=== PATIENT | female | born 1965 | race Caucasian/White ===

== ENCOUNTER 2017-04-27 14:59 | Inpatient (IN) ==
[2017-04-27] MEDS ORDERED: Vancomycin 1,250 MG in D5% in Water 250 ML IVPB ONE ×2 (15:55→17:00)
[2017-04-27 16:23] LABS: Bilirubin,Urine Negative (Negative); Blood,Urine Negative (Negative); Color,Urine Yellow (Yellow); Glucose,Urine (UA) Normal (Normal); Ketones,Urine 15 mg/dL (Negative); Leukocyte Esterase,Urine Moderate (Negative); Nitrite,Urine Negative (Negative); Protein,Urine Negative (Neg-Trace); Specific Gravity,Urine 1.017 (1.010-1.025); Urobilinogen,Urine Normal (Normal)
[2017-04-27] MEDS ORDERED: Ketorolac 15 MG/ML VIAL IVP ONE (16:23)
[2017-04-27 16:25] LABS: Bacteria,Urine Moderate per hpf (None-Few); Hyaline Casts,Urine None Seen per lpf (None-Few); Squamous Epithelial Cell,Urine Many per lpf (None-Few); WBC,Urine 50-100 per hpf (0-3)
[2017-04-27 16:32] LABS: Clarity,Urine Slightly Hazy (Clear)
[2017-04-27 16:38] LABS: Basophils % 0.4 %; Eosinophils % 0.2 %; Hematocrit 43.3 % (35.3-44.9); Hemoglobin 14.4 g/dL (11.5-15.4); Immature Granulocytes % 0.4 % (0-4); Lymphocytes # 0.6 K/mcL (0.6-4.6); Lymphocytes % 12.8 %; Mean Corpuscular HGB Conc 33.3 g/dL (31.6-35.5); Mean Corpuscular Hemoglobin 28.4 pg (28.0-33.3); Mean Corpuscular Volume 85.4 fL (83.0-100.0); Mean Platelet Volume 10.8 fL (9.4-12.4); Monocytes # 0.3 K/mcL (0.0-1.3); Monocytes % 6.8 %; Neutrophils # 3.8 K/mcL (1.6-8.9); Platelet Count 110 K/mcL (140-400); Red Blood Count 5.07 M/mcL (3.82-4.97); Red Cell Distribution Width 13.9 % (11.5-14.5); Segmented Neutrophils % 79.4 %
[2017-04-27 16:54] LABS: Alanine Aminotransferase 16 Units/L (0-55); Albumin 3.8 g/dL (3.5-5.0); Albumin/Globulin Ratio 1.2 (1.1-2.2); Alkaline Phosphatase 70 Units/L (38-126); Aspartate Amino Transferase 16 Units/L (5-34); BUN/Creatinine Ratio 12 (6-26); Bilirubin,Direct 0.3 mg/dL (0.0-0.5); Blood Urea Nitrogen 9 mg/dL (7-20); Carbon Dioxide 23 mEq/L (19-29); Chloride 103 mEq/L (98-109); Globulin 3.2 g/dL (2.4-3.5); Glucose 92 mg/dL (70-99); Magnesium 1.6 mg/dL (1.6-2.6); Osmolality,Calculated 278 (280-300); Phosphorous 1.5 mg/dL (2.3-4.7); Potassium 3.6 mEq/L (3.5-4.5); Sodium 135 mEq/L (136-145); eGFR For African Americans > 60 (> 60); eGFR For Non-African Americans > 60 (> 60)
--- NOTE | 2017-04-27 16:54 | Emergency Department Note ---
Disposition Clinical Impression: Neck pain, Fever and chills, Myalgia Headache Qualifiers: Headache type: other complicated headache syndrome Qualified Code(s): G44.59 - Other complicated headache syndrome UTI (urinary tract infection) Qualifiers: Urinary tract infection type: site unspecified Hematuria presence: with hematuria Qualified Code(s): N39.0 - Urinary tract infection, site not specified ; R31.9 - Hematuria, unspecified Disposition: Admitted As Inpatient Condition: Serious Referrals: Keaton Gonzalez MD [Primary Care Provider] - Time of Disposition: 20:30 General Adult HPI - General Chief complaint: ED General Medical Stated complaint: Cold Chills x3 days Time Seen by Provider: 04/27/17 15:20 Source: patient Mode of arrival: ambulatory Limitations: no limitations Nursing Notes Reviewed: Yes Vital Signs Reviewed: Yes - History of Present Illness HPI Narrative: Patient is a 51-year-old female who is brought in by POC secondary to chills, bodyaches, 2 days. She states that 2 days ago she experienced sudden onset of severe chills and felt cold all day and was unable to get warm. Patient complains of headache and neck pain and fever 104 degrees Fahrenheit times one day ago. He states that she has had migraines in the past but her headache is completely different and feels worse. Patient states her neck feels painful with range of motion. Patient has history of back trauma and scoliosis times one year ago but her pain symptoms are worse today. Patient states headache 10/ 10 constant pressure on both sides of her head and has blurry vision. Patient also complains of bilateral abdominal flank pain but denies diarrhea, and vomiting. Pain Scale: 8 - Related Data Home Medications Medication Instructions Recorded Confirmed No Known Home Drugs 04/27/17 04/27/17 Allergies Allergy/AdvReac Type Severity Reaction Status Date / Time No Known Allergies Allergy Verified 07/25/15 19:27 All systems ED: reviewed and negative except as stated. Review of Systems: As Per HPI Constitutional: Reports: fever, chills Eyes: Reports: vision change ENT ED: Reports: ear pain Gastrointestinal: Reports: abdominal pain, nausea Musculoskeletal: Reports: back pain Neurological: Reports: headache, paresthesias (Bilateral upper extremities) Psychiatric: Reports: anxiety Past Medical History - Past Medical History Attestation: Yes The following information was validated with the patient. Source: patient Medical history: Reports: no medical history Psychiatric history: Reports: no psych history ACIDIZER history: Reports: no ACIDIZER history - Social History Smoking Status: Current some day smoker Smokeless Tobacco Status: No Alcohol use: Reports: none Drug use: Reports: none Physical Exam Vital Signs Temperature 103.3 F H 04/27/17 15:11 Pulse Rate 113 04/27/17 15:11 Respiratory Rate 18 04/27/17 15:11 Blood Pressure 115/76 04/27/17 15:11 O2 Sat by Pulse Oximetry 96 04/27/17 15:11 Temperature 98.4 F 04/27/17 22:10 Pulse Rate 76 04/27/17 22:10 Respiratory Rate 16 04/27/17 22:10 Blood Pressure 98/66 04/27/17 22:10 O2 Sat by Pulse Oximetry 91 04/27/17 22:10 Oxygen Delivery Oxygen Delivery Room Air -General Appearance: Patient is a 51-year-old female alert and oriented 3 abbi in bed very emotional and complaining of excruciating head and neck pain. Patient appears very uncomfortable -Neurological exam: Cranial nerves II-12 intact, no focal deficits observed, strength equal 5/5 bilaterally in upper and lower extremities, patient to perform rapid all stable movements of both hands, he will to littlejohn equal bilateral Negative loss of sensation, patient complains of tingling sensation in the upper extremities not reproducible with palpation - Head Head exam: atraumatic, normocephalic, normal inspection - Eye Eye exam: Present: normal appearance, PERRL, EOMI, negative for scleral icterus negative for conjunctival pallor - ENT ENT exam: normal exam, normal oropharynx, mucous membranes very dry, neck tender to palpation paraspinal cervical area, patient has severe discomfort with range of motion of neck. - Neck Neck exam: Present: normal inspection, full ROM, trachea midline, negative JVD - Chest Chest inspection: Present: Patient has bilateral equal rise and fall of chest wall. Non-tender to palpation. - Respiratory Respiratory exam: Clear to auscultation bilaterally without wheezes rales or rhonchi Cardiovascular Cardiovascular exam: Present: Fast rate regular rhythm without murmurs rubs or gallops. - Abdominal Exam Abdominal exam: Present: soft, nondistended, tender to palpation along patient' s flanks bilaterally. Bowel sounds normoactive throughout all 4 quadrants. Negative for hyper or hyperresonance. - Extremities Exam Extremities exam: Present: normal inspection, full ROM, pulses equal regular bilaterally at the radials and dorsal pedal and posterior tibial - Back Exam Back exam: Present: normal inspection, full ROM. Present tenderness, CVA tenderness (R), CVA tenderness (L) - Skin Skin exam: Present: warm, dry, intact, normal color no rash - General Limitations: no limitations General appearance: alert Course - Reevaluation(s) Reevaluation #1: Patient very uncomfortable secondary to pain. All labs and CT head been ordered. Time: 16:00 Reevaluation #2: Still continued to peripheral IV line. Patient had an ultrasound IV placed in right upper arm but access failed. We will reattempt after lumbar puncture Time: 17:00 Reevaluation #3: Patient received lumbar puncture and tolerated procedure well. No complications patient currently pain free after medications: Ativan IM for anxiety because pt is very anxious, and Dilaudid IM for severe pain all over. Patient O2 sats drop secondary to medications and has been placed on oxygen but is doing well. Patient still alert and oriented maintaining her own airway Time: 19:19 - Consultations Consultation #1: Patient is accepted for admission by Dr. Bansal the hospitalist at 2019 Time: 20:20 Vital Signs Temperature 103.3 F H 04/27/17 15:11 Pulse Rate 113 04/27/17 15:11 Respiratory Rate 18 04/27/17 15:11 Blood Pressure 115/76 04/27/17 15:11 O2 Sat by Pulse Oximetry 96 04/27/17 15:11 Temperature 98.4 F 04/27/17 22:10 Pulse Rate 76 04/27/17 22:10 Respiratory Rate 16 04/27/17 22:10 Blood Pressure 98/66 04/27/17 22:10 O2 Sat by Pulse Oximetry 91 04/27/17 22:10 Oxygen Delivery Oxygen Delivery Room Air Procedures - Lumbar Puncture Consent Obtained: verbal consent, written consent Time Out Performed: Yes Patient Position: upright Skin Prep: Povidone-Iodine 1% Local Anesthetic: lidocaine 1% Spinal Needle Gauge: 22G Interspace Used: L3-L4 Fluid Initially Obtained: cloudy Complications: none Medical Decision Making - MDM Narrative Medical decision making narrative: Patient concerning for meningitis bacterial versus viral, sepsis, UTI. Secondary to high fever 103 with very neck pain, severe headache not equal to previous migraine-type headaches, flank pain bilaterally with urinary urgency, myalgias, light sensitivity and blurred vision blurriness, nausea. Patient has a fever of 103 degrees Fahrenheit and is tachycardic at 113 bpm. Patient's urine looks suspicious for UTI has a lot of squama cells. In conjunction with patient's presentation possible sepsis. Patient's CSF studies were negative. Patient was started on antibiotics ceftriaxone and vancomycin, patient was given Ativan and Dilaudid for pain and and anxiety. Patient received her 30 mg/ kg bolus of IV fluids. Patient received Tylenol which broke her fever. Patient is currently comfortable. Patient's nausea has been controlled with Zofran. Recommend admission to the hospital to patient and patient and family understands and accepts treatment and plan Patient will continue her treatment inpatient medicine. Patient is accepted for admission by Dr. gil to the hospitalist, for continued antibiotic therapy for suspected sepsis and pain control. - Medical Records Medical records reviewed: Yes I reviewed the patient's medical records. - Lab Data Lab results reviewed: Yes I reviewed the patient's lab results. Lab results narrative: Short CBC 04/27/17 Range/Units 16:19 WBC 4.8 (4.3-11.1) K/mcL Hgb 14.4 (11.5-15.4) g/dL Hct 43.3 (35.3-44.9) % Plt Count 110 L (140-400) K/mcL Neutrophils # 3.8 (1.6-8.9) K/mcL BMP 04/27/17 Range/Units 16:19 Sodium 135 L (136-145) mEq/L Potassium 3.6 (3.5-4.5) mEq/L Chloride 103 (98-109) mEq/L Carbon Dioxide 23 (19-29) mEq/L BUN 9 (7-20) mg/dL Creatinine 0.77 (0.57-1.11) mg/dL Glucose 92 (70-99) mg/dL Calcium 10.0 (8.6-10.8) mg/dL Liver Function 04/27/17 Range/Units 16:19 Total Bilirubin 0.3 (0.2-1.2) mg/dL Direct Bilirubin 0.3 (0.0-0.5) mg/dL AST 16 (5-34) Units/L ALT 16 (0-55) Units/L Alkaline Phosphatase 70 (38-126) Units/L Albumin 3.8 (3.5-5.0) g/dL Urine 04/27/17 Range/Units 15:25 Urine Color Yellow (Yellow) Urine Clarity Slightly Hazy (Clear) Urine pH 8.0 (5.0-8.0) pH Units Ur Specific [place] 1.017 (1.010-1.025) Urine Protein Negative (Neg-Trace) mg/dL Urine Glucose (UA) Normal (Normal) mg/dL Result diagrams: 04/27/17 16:19 04/27/17 16:19 Lab Results 04/27/17 04/27/17 04/27/17 Range/Units 15:25 16:19 16:19 WBC 4.8 (4.3-11.1) K/mcL RBC 5.07 H (3.82-4.97) M/mcL Hgb 14.4 (11.5-15.4) g/dL Hct 43.3 (35.3-44.9) % MCV 85.4 (83.0-100.0) fL MCH 28.4 (28.0-33.3) pg MCHC 33.3 (31.6-35.5) g/dL RDW 13.9 (11.5-14.5) % Plt Count 110 L (140-400) K/mcL MPV 10.8 (9.4-12.4) fL Immature Gran % 0.4 (0-4) % Seg Neutrophils % 79.4 % Lymphocytes % 12.8 % Monocytes % 6.8 % Eosinophils % 0.2 % Basophils % 0.4 % Neutrophils # 3.8 (1.6-8.9) K/mcL Lymphocytes # 0.6 (0.6-4.6) K/mcL Monocytes # 0.3 (0.0-1.3) K/mcL Eosinophils # 0.0 (0.0-0.6) K/mcL Basophils # 0.0 (0.0-0.2) K/mcL APTT 29.8 (26.0-36.0) Seconds VBG pH (7.32-7.42) pH Units VBG pCO2 (41-51) mmHg VBG pO2 (25-40) mmHg VBG HCO3 (21-27) mEq/L Sodium (136-145) mEq/L Potassium (3.5-4.5) mEq/L Chloride (98-109) mEq/L Carbon Dioxide (19-29) mEq/L BUN (7-20) mg/dL Creatinine (0.57-1.11) mg/dL Est GFR ( Amer) (> 60) Est GFR (Non-Af Amer) (> 60) BUN/Creatinine Ratio (6-26) Glucose (70-99) mg/dL Calculated Osmolality (280-300) Lactic Acid (0.5-2.2) mmol/L Calcium (8.6-10.8) mg/dL Phosphorus (2.3-4.7) mg/dL Magnesium (1.6-2.6) mg/dL Total Bilirubin (0.2-1.2) mg/dL Direct Bilirubin (0.0-0.5) mg/dL Indirect Bilirubin (0.0-1.2) mg/dL AST (5-34) Units/L ALT (0-55) Units/L Alkaline Phosphatase (38-126) Units/L Serum Total Protein (6.0-8.3) g/dL Albumin (3.5-5.0) g/dL Globulin (2.4-3.5) g/dL Albumin/Globulin Ratio (1.1-2.2) Lipase (8-78) Units/L Serum , Qual (Negative) Urine Color Yellow (Yellow) Urine Clarity Slightly Hazy (Clear) Urine pH 8.0 (5.0-8.0) pH Units Ur Specific [place] 1.017 (1.010-1.025) Urine Protein Negative (Neg-Trace) mg/dL Urine Glucose (UA) Normal (Normal) mg/dL Urine Ketones 15 H (Negative) mg/dL Urine Blood Negative (Negative) Urine Nitrite Negative (Negative) Urine Bilirubin Negative (Negative) Urine Urobilinogen Normal (Normal) mg/dL Ur Leukocyte Esterase Moderate H (Negative) Urine Microscopic RBC 3-5 H (0-3) per hpf Urine Microscopic WBC 50-100 H (0-3) per hpf Ur Squamous Epith Cells Many H (None-Few) per lpf Urine Bacteria Moderate H (None-Few) per hpf Hyaline Casts None Seen (None-Few) per lpf Ur Culture Indicated? YES A (NO) CSF Volume mL CSF Appearance (Clear) CSF Color (Colorless) CSF RBC (0.000 - 0.002) M/mcL CSF Tot Nucleated Cells (0-5) TNC/mcL CSF Seg Neutrophils CSF Band Neutrophils % CSF Lymphocytes % CSF Monocytes % CSF Eosinophils % CSF Basophils % CSF Other Cells % CSF Glucose (40-70) mg/dL CSF Xanth Comm (Not Observe) CSF Total Protein (15-45) mg/dL 04/27/17 04/27/17 04/27/17 Range/Units 16:19 16:19 16:59 WBC (4.3-11.1) K/mcL RBC (3.82-4.97) M/mcL Hgb (11.5-15.4) g/dL Hct (35.3-44.9) % MCV (83.0-100.0) fL MCH (28.0-33.3) pg MCHC (31.6-35.5) g/dL RDW (11.5-14.5) % Plt Count (140-400) K/mcL MPV (9.4-12.4) fL Immature Gran % (0-4) % Seg Neutrophils % % Lymphocytes % % Monocytes % % Eosinophils % % Basophils % % Neutrophils # (1.6-8.9) K/mcL Lymphocytes # (0.6-4.6) K/mcL Monocytes # (0.0-1.3) K/mcL Eosinophils # (0.0-0.6) K/mcL Basophils # (0.0-0.2) K/mcL APTT (26.0-36.0) Seconds VBG pH (7.32-7.42) pH Units VBG pCO2 (41-51) mmHg VBG pO2 (25-40) mmHg VBG HCO3 (21-27) mEq/L Sodium 135 L (136-145) mEq/L Potassium 3.6 (3.5-4.5) mEq/L Chloride 103 (98-109) mEq/L Carbon Dioxide 23 (19-29) mEq/L BUN 9 (7-20) mg/dL Creatinine 0.77 (0.57-1.11) mg/dL Est GFR ( Amer) > 60 (> 60) Est GFR (Non-Af Amer) > 60 (> 60) BUN/Creatinine Ratio 12 (6-26) Glucose 92 (70-99) mg/dL Calculated Osmolality 278 L (280-300) Lactic Acid 1.1 (0.5-2.2) mmol/L Calcium 10.0 (8.6-10.8) mg/dL Phosphorus 1.5 L (2.3-4.7) mg/dL Magnesium 1.6 (1.6-2.6) mg/dL Total Bilirubin 0.3 (0.2-1.2) mg/dL Direct Bilirubin 0.3 (0.0-0.5) mg/dL Indirect Bilirubin 0.0 (0.0-1.2) mg/dL AST 16 (5-34) Units/L ALT 16 (0-55) Units/L Alkaline Phosphatase 70 (38-126) Units/L Serum Total Protein 7.0 (6.0-8.3) g/dL Albumin 3.8 (3.5-5.0) g/dL Globulin 3.2 (2.4-3.5) g/dL Albumin/Globulin Ratio 1.2 (1.1-2.2) Lipase < 10 (8-78) Units/L Serum , Qual Negative (Negative) Urine Color (Yellow) Urine Clarity (Clear) Urine pH (5.0-8.0) pH Units Ur Specific [place] (1.010-1.025) Urine Protein (Neg-Trace) mg/dL Urine Glucose (UA) (Normal) mg/dL Urine Ketones (Negative) mg/dL Urine Blood (Negative) Urine Nitrite (Negative) Urine Bilirubin (Negative) Urine Urobilinogen (Normal) mg/dL Ur Leukocyte Esterase (Negative) Urine Microscopic RBC (0-3) per hpf Urine Microscopic WBC (0-3) per hpf Ur Squamous Epith Cells (None-Few) per lpf Urine Bacteria (None-Few) per hpf Hyaline Casts (None-Few) per lpf Ur Culture Indicated? (NO) CSF Volume mL CSF Appearance (Clear) CSF Color (Colorless) CSF RBC (0.000 - 0.002) M/mcL CSF Tot Nucleated Cells (0-5) TNC/mcL CSF Seg Neutrophils CSF Band Neutrophils % CSF Lymphocytes % CSF Monocytes % CSF Eosinophils % CSF Basophils % CSF Other Cells % CSF Glucose (40-70) mg/dL CSF Xanth Comm (Not Observe) CSF Total Protein (15-45) mg/dL 04/27/17 04/27/17 Range/Units 16:59 18:56 WBC (4.3-11.1) K/mcL RBC (3.82-4.97) M/mcL Hgb (11.5-15.4) g/dL Hct (35.3-44.9) % MCV (83.0-100.0) fL MCH (28.0-33.3) pg MCHC (31.6-35.5) g/dL RDW (11.5-14.5) % Plt Count (140-400) K/mcL MPV (9.4-12.4) fL Immature Gran % (0-4) % Seg Neutrophils % % Lymphocytes % % Monocytes % % Eosinophils % % Basophils % % Neutrophils # (1.6-8.9) K/mcL Lymphocytes # (0.6-4.6) K/mcL Monocytes # (0.0-1.3) K/mcL Eosinophils # (0.0-0.6) K/mcL Basophils # (0.0-0.2) K/mcL APTT (26.0-36.0) Seconds VBG pH 7.49 H (7.32-7.42) pH Units VBG pCO2 34 L (41-51) mmHg VBG pO2 31 (25-40) mmHg VBG HCO3 25.9 (21-27) mEq/L Sodium (136-145) mEq/L Potassium (3.5-4.5) mEq/L Chloride (98-109) mEq/L Carbon Dioxide (19-29) mEq/L BUN (7-20) mg/dL Creatinine (0.57-1.11) mg/dL Est GFR ( Amer) (> 60) Est GFR (Non-Af Amer) (> 60) BUN/Creatinine Ratio (6-26) Glucose (70-99) mg/dL Calculated Osmolality (280-300) Lactic Acid (0.5-2.2) mmol/L Calcium (8.6-10.8) mg/dL Phosphorus (2.3-4.7) mg/dL Magnesium (1.6-2.6) mg/dL Total Bilirubin (0.2-1.2) mg/dL Direct Bilirubin (0.0-0.5) mg/dL Indirect Bilirubin (0.0-1.2) mg/dL AST (5-34) Units/L ALT (0-55) Units/L Alkaline Phosphatase (38-126) Units/L Serum Total Protein (6.0-8.3) g/dL Albumin (3.5-5.0) g/dL Globulin (2.4-3.5) g/dL Albumin/Globulin Ratio (1.1-2.2) Lipase (8-78) Units/L Serum , Qual (Negative) Urine Color (Yellow) Urine Clarity (Clear) Urine pH (5.0-8.0) pH Units Ur Specific [place] (1.010-1.025) Urine Protein (Neg-Trace) mg/dL Urine Glucose (UA) (Normal) mg/dL Urine Ketones (Negative) mg/dL Urine Blood (Negative) Urine Nitrite (Negative) Urine Bilirubin (Negative) Urine Urobilinogen (Normal) mg/dL Ur Leukocyte Esterase (Negative) Urine Microscopic RBC (0-3) per hpf Urine Microscopic WBC (0-3) per hpf Ur Squamous Epith Cells (None-Few) per lpf Urine Bacteria (None-Few) per hpf Hyaline Casts (None-Few) per lpf Ur Culture Indicated? (NO) CSF Volume 5.0 mL CSF Appearance Clear (Clear) CSF Color Colorless (Colorless) CSF RBC < 0.002 (0.000 - 0.002) M/mcL CSF Tot Nucleated Cells < 3 (0-5) TNC/mcL CSF Seg Neutrophils Test Not Performed CSF Band Neutrophils % Test Not Performed CSF Lymphocytes % Test Not Performed CSF Monocytes % Test Not Performed CSF Eosinophils % Test Not Performed CSF Basophils % Test Not Performed CSF Other Cells % Test Not Performed CSF Glucose 52 (40-70) mg/dL CSF Xanth Comm Not Observed (Not Observe) CSF Total Protein 35 (15-45) mg/dL - Radiology Data Radiology results reviewed: Yes I reviewed the patient's radiology results. Chest X-Ray 04/27/17 15:56 IMPRESSION: No acute cardiac or pulmonary disease. D/ / Vick Hassan MD / Vick Hassan MD Interpreting Provider: Vick Hassan MD Head CT 04/27/17 16:22 IMPRESSION: No acute intracranial abnormality. D/ / Estephania Greene Cha, MD / Estephania Greene Cha, MD Interpreting Provider: Estephania Greene Cha, MD Critical Care Time Critical Care Time: Yes Total Critical Care Time: 30 Attestation: The high probability of a clinically significant, sudden or life threatening deterioration of the [neuro] system(s) required my full and direct attention, intervention and personal management. The aggregate critical care time was [30] minutes. This time is in addition to time spent performing reported procedures but includes the following: [x] Data Review and interpretation [x] Patient assessment and monitoring of vital signs [x] Documentation [x] Medication orders and management Attestation Statement - Attestation Attestation: I personally interviewed and examined this patient and my medical decision- making was reviewed with the Resident Physician, Dr. Palacios and Dr. Silva. I agree with the documented findings, disposition and treatment plan as described except to the extent set forth below. Patient is a 51-year-old white female who presents to the emergency department today with complaints of a 2 day history of fevers mild upper respiratory symptoms, gradually worsening diffuse headache, with neck pain and stiffness. Patient states that these symptoms have gradually worsened over the last 48 hours to the point that she is having significant nausea secondary to increased pain in her head and neck with decreased appetite. Patient states her MAXIMUM TEMPERATURE at home has been 104 for which she has been taking Tylenol. Patient has a history of chronic low back pain secondary to scoliosis and states that this is at its baseline and not any worse in comparison with the neck and headache pain she is experiencing. Patient states she has had occasional migraine headaches in the past but this feels very different was gradual in onset, generalized and throbbing in nature not associated with photophobia/phonophobia. Patient denies any ill contacts that she is aware of. Patient presents with fever and tachycardia but stable blood pressure on arrival. Due to patient being Sirs criteria this was ordered on arrival as well as fluid boluses. Blood cultures were obtained. I agree with patient's physical exam findings as documented. Patient had labs obtained as well as blood cultures, was given medication for pain and anxiety, IV fluid boluses were initiated and following cultures patient was treated with empiric antibiotic therapy for possible meningitis. I personally supervised Dr. Palacios during lumbar puncture procedure. 10/24 remained, initial attempt was with the patient in left lateral recumbent position, second attempt which was successful was in a seated position. Cerebrospinal fluid was sent for analysis and Gram stain and culture. Patient with a normal white count on laboratory, normal lactate, all labs within normal limits and CSF was unremarkable for any infection or bacteria present on the Gram stain. Urinalysis showed large leuks but possibly contaminated as a clean- catch specimen was obtained and there were no nitrates. Patient did get some relief from her headache pain after pain medication which caused a transient hypotension. Fluids were continued and she was placed on supplemental O2 but was maintaining an airway and good mental status. At this point time is unclear what has contributed to the fever but workup for meningitis was negative. Patient primarily complaining of headache and neck discomfort related to this fever. Fever did respond medications on arrival temp is down at this time. We will admit the patient for ongoing antibiotic therapy and continued medical management. Patient was admitted to the hospitalist service for further evaluation and management. Heart Score - Score History: Moderately Suspicious EKG: Non Specific repolarisation Disturbance Age: 45-65 Risk Factors: Equal/Greater than 3 risk factor or history of atherosclerotic disease Troponin: Less than normal limit HEART Score Total: 5
[2017-04-27 17:00] LABS: Lipase < 10 Units/L (8-78)
[2017-04-27] MEDS ORDERED: Ondansetron 4 MG/2 ML VIAL IVP ONE (17:11)
[2017-04-27 17:21] LABS: VBG HCO3 25.9 mEq/L (21-27); VBG PH 7.49 pH Units (7.32-7.42)
[2017-04-27] MEDS ORDERED: *HR* LORazepam 2 MG/ML VIAL IVP ONE (17:25)
[2017-04-27] MEDS ORDERED: *HR* HYDROmorphone (PF) 1 MG/ML SYRINGE IVP ONE (17:34)
[2017-04-27] MEDS ORDERED: *HR* HYDROmorphone (PF) 1 MG/ML SYRINGE IM ONE (17:39)
[2017-04-27] MEDS ORDERED: *HR* LORazepam 2 MG/ML VIAL IM STA (17:40)
[2017-04-27 19:13] LABS: Red Blood Cell,CSF < 0.002 M/mcL
[2017-04-27] MEDS: 0.9 % Sodium Chloride 1,000 ML IVC SCH ×2 (19:13→20:02)
[2017-04-27 19:14] LABS: Appearance,CSF Clear (Clear)
[2017-04-27 19:24] LABS: Glucose,CSF 52 mg/dL (40-70); Total Protein,CSF 35 mg/dL (15-45)
[2017-04-27] MEDS ORDERED: 0.9 % Sodium Chloride 1,000 ML ONE ×2 (20:01→22:27)
[2017-04-27] MEDS ORDERED: Naloxone 0.4 MG/ML INJ IVP PRN (23:24)
[2017-04-27] MEDS ORDERED: *HR* Morphine 2 MG/ML SYRINGE IVP PRN (23:29)
[2017-04-27] MEDS ORDERED: Ondansetron 4 MG/2 ML VIAL IVP PRN (23:29)
[2017-04-27] MEDS ORDERED: Acetaminophen 325 MG TABLET PO PRN (23:29)
--- NOTE | 2017-04-27 23:48 | Internal Med History&Physical ---
<Jerzy Witt J - Last Filed: 04/28/17 00:20> Date of Encounter: 04/28/17 Time of Encounter: 23:41 Assessment and Plan (1) Sepsis secondary to UTI Current visit: Yes Status: Acute Presented to the ED with chills, body aches, fever Tmax 103, dysuria, urgency, nausea, Hypotension, tachycardia, UA confirmed diagnosis of UTI. Due to positive SIRS criteria diagnosis is sepsis secondary to UTI. Admit to inpatient Continuous tele Continuous pulse ox Oxygen PRN >92% Q2hour vitals until hemodynamically stable IVF 0.9%NS at 150ml/hr Tylenol 650mg for fever and pain. Continue Rocephin 1gm daily. Morphine 2mg Q6hr for pain (2) DVT prophylaxis Current visit: Yes Status: Acute Prolonged bed rest secondary to hospital stay and sepsis diagnosis. Patient at risk for DVT. Initiate Lovenox subcutaneous 40 mg daily Internal Medicine - H&P: HPI Chief complaint: Chills, bodyaches, Dysuria, weakness and fatigue Admitted From: Home Plans for Post Hospital Care: Home History of present illness: Ms. Yang is a 51 year old female with no past medical history who presents to [facility] with ongoing neck pain, chills, dysuria, urgency, fever Tmax 103, abdominal pain, body aches, neck pain for 2 days. Patient reports to feeling ill for a few weeks overall with night sweats, sore throat, ear pain, and generalized aches. However 2 days ago she began experiencing chills, dysuria, urgency and fevers which are continuing. She denies taking any mediation for remediation of symptoms. SIRS criteria implemented in the ED as the patient was hypotensive, tachycardic, and febrile. She received 3 L IV fluid bolus. Urinalysis noted moderate leukocytes. Culture sent, blood culture sent, lumbar puncture was completed due to neck pain with limited range of motion and positive SIRS criteria. CBC and BMP are unremarkable. Additionally, she was given vancomycin and Rocephin in the ED. She is being admitted for further workup and evaluation. Past Med Surg Social Fam HX - Past Medical History Medical history: no medical history Psychiatric history: no psych history - Social History Smoking Status: Current some day smoker Packs per day: 0.5 Smokeless Tobacco Status: No Alcohol use: none Drug use: none - Family History Mother Hx Family Endocrine Disorder: Yes (Diabetes) Father Hx Family Cancer: Yes (throat) Internal Medicine - H&P: Meds No Known Home Drugs 04/27/17 [History] Allergies No Known Allergies Allergy (Verified 07/25/15 19:27) All Systems PM: A 10-system review of systems was performed and is negative for pertinent findings except as documented above in the HPI. - Constitutional Constitutional: chills (x2 days), excessive sweating, fatigue, fever(s) (x2days) , lethargy, malaise, weakness, no night sweats - EENT Eyes: no change in vision, no discharge, no pain, no photophobia Ears: no ear discharge, no ear pain, no tinnitus Nose, mouth and throat: no dysphagia, no nasal discharge, no neck pain, no sore throat - Cardiovascular Cardiovascular ROS IM: no chest pain, no diaphoresis, no dyspnea, no lightheadedness, no palpitations, no syncope - Respiratory Respiratory: no cough, no dyspnea, no wheezing, no excessive phlegm production - Gastrointestinal Gastrointestinal: no abdominal pain, no diarrhea, no hematemesis, no hematochezia, no melena, no nausea, no vomiting - Genitourinary Genitourinary: dysuria, urinary frequency, urinary urgency, no change in urinary stream, no flank pain, no hematuria, no urinary hesitancy, no urinary incontinence - Musculoskeletal Musculoskeletal ROS IM: back pain (lower back only/ h/o sciatica reported), no numbness, no tingling - Integumentary Integumentary IM: no erythema, no new lesions, no rash, no skin ulcer, no sores , no unusual bruising - Neurological Neurological ROS: no confusion, no convulsions, no focal weakness, no numbness, no tingling, no tremor(s) - Hematologic/Lymphatic Hematologic/Lymphatic: no easy bruising - Constitutional Vitals: Temp Pulse Resp BP Pulse Ox 98.4 F 76 16 98/66 91 04/27/17 22:10 04/27/17 22:10 04/27/17 22:10 04/27/17 22:10 04/27/17 22:10 General appearance: Present: mild distress, A&O X 3, pleasant, answers questions appropriately - Head Head exam: Present: atraumatic, normocephalic - Eye Eye exam: Present: EOMI, PERRL, conjuntiva pink, sclera anicteric Pupils: Present: PERRL - Neck Neck exam general surgery: Present: supple, trachea midline. Absent: lymphadenopathy - Respiratory Respiratory exam: Present: CTAB. Absent: accessory muscle use, rales, rhonchi, wheezes - Cardiovascular Cardiovascular exam: Present: RRR, +S1, +S2. Absent: diastolic murmur, gallop, rubs, systolic murmur - GI/Abdominal GI/Abdominal exam: Present: normal bowel sounds, soft, no peritoneal signs. Absent: distended, tenderness - Extremities Exam Extremities exam: Present: normal capillary refill, warm, radial pulses palpable and symmetrical. Absent: calf tenderness, cyanotic, pedal edema - Neurological Exam Neurological exam: Present: CN II-XII intact, oriented X3, no focal deficits. Absent: pronater drift, facial droop, speech deficit - Skin Skin exam: Present: dry, intact, warm Internal Med - H&P Results - Labs CBC & Chem 7: 04/27/17 16:19 04/27/17 16:19 <George Peterson - Last Filed: 04/28/17 05:31> Date of Encounter: 04/28/17 Internal Medicine - H&P: HPI History of present illness: Ms. Yang is a 51 year old female All Systems PM: A 10-system review of systems was performed and is negative for pertinent findings except as documented above in the HPI. - Constitutional Vitals: Temp Pulse Resp BP Pulse Ox 102.7 F H 103 15 121/79 96 04/28/17 04:22 04/28/17 04:22 04/28/17 04:22 04/28/17 04:22 04/28/17 04:22 Internal Med - H&P Results - Labs CBC & Chem 7: 04/28/17 02:09 04/28/17 02:09 Labs: Short CBC 04/28/17 Range/Units 02:09 WBC 4.4 (4.3-11.1) K/mcL Hgb 13.4 (11.5-15.4) g/dL Hct 41.2 (35.3-44.9) % Plt Count 108 L (140-400) K/mcL Neutrophils # 3.1 (1.6-8.9) K/mcL BMP 04/28/17 02:09 Sodium 139 Potassium 3.4 L Chloride 108 Carbon Dioxide 24 BUN 12 Creatinine 0.72 Glucose 119 H Calcium 9.1 Liver Function 04/28/17 04/28/17 Range/Units 02:09 02:09 Total Bilirubin 0.3 0.3 (0.2-1.2) mg/dL Direct Bilirubin 0.2 (0.0-0.5) mg/dL AST 13 13 (5-34) Units/L ALT 12 12 (0-55) Units/L Alkaline Phosphatase 60 57 (38-126) Units/L Albumin 2.9 L 2.9 L D (3.5-5.0) g/dL - Attending Attestation I independently obtained history and examined this patient and my medical decision-making was reviewed with the nurse practitioner, Jerzy Witt. I agree with the documented findings, disposition and treatment plan as described. My findings are summarized below: On exam the patient is in no acute distress awake alert and oriented. Heart exam is regular S1-S2, lungs are clear, abdomen is obese, soft and nontender Plan: We will treat her with IV antibiotics and IV fluids for sepsis. I will increase the dose of ceftriaxone to 2 g every 24 hours. Follow-up culture and sensitivity.
--- NOTE | 2017-04-27 23:57 | Event Note ---
Date of Encounter: 04/27/17 Time of Encounter: 23:54 I independently obtained history and examined this patient and my medical decision-making was reviewed with the nurse practitioner, Jerzy Witt. I agree with the documented findings, disposition and treatment plan as described. My findings are summarized below: As noted kidney minutes patient presented to the hospital with fevers and chills. On exam she is in no acute distress awake alert and oriented, heart is regular, lungs are clear abdomen is soft Workup reveals positive urinalysis. Plan: We will treat her with IV fluid fluids and broad-spectrum IV antibiotics. She is at high risk due to sepsis and IV antibiotics which require close blood level monitoring for toxicity and therapeutic effect
[2017-04-28] MEDS: 0.9 % Sodium Chloride 1,000 ML IVC SCH ×6 (00:30→22:40)
[2017-04-28 02:26] LABS: Basophils % 0.2 %; Eosinophils % 0.7 %; Hematocrit 41.2 % (35.3-44.9); Hemoglobin 13.4 g/dL (11.5-15.4); Immature Granulocytes % 0.2 % (0-4); Lymphocytes % 22.4 %; Mean Corpuscular HGB Conc 32.5 g/dL (31.6-35.5); Mean Corpuscular Hemoglobin 28.3 pg (28.0-33.3); Mean Corpuscular Volume 87.1 fL (83.0-100.0); Mean Platelet Volume 10.8 fL (9.4-12.4); Monocytes # 0.3 K/mcL (0.0-1.3); Monocytes % 6.2 %; Neutrophils # 3.1 K/mcL (1.6-8.9); Platelet Count 108 K/mcL (140-400); Red Blood Count 4.73 M/mcL (3.82-4.97); Red Cell Distribution Width 14.1 % (11.5-14.5); Segmented Neutrophils % 70.3 %
[2017-04-28 02:38] LABS: Bilirubin,Direct 0.2 mg/dL (0.0-0.5); Bilirubin,Indirect 0.1 mg/dL (0.0-1.2); Bilirubin,Total 0.3 mg/dL (0.2-1.2); Total Protein 5.9 g/dL (6.0-8.3)
[2017-04-28 02:41] LABS: Alanine Aminotransferase 12 Units/L (0-55); Albumin 2.9 g/dL (3.5-5.0); Alkaline Phosphatase 57 Units/L (38-126); Aspartate Amino Transferase 13 Units/L (5-34); BUN/Creatinine Ratio 17 (6-26); Bilirubin,Total 0.3 mg/dL (0.2-1.2); Blood Urea Nitrogen 12 mg/dL (7-20); Calcium 9.1 mg/dL (8.6-10.8); Carbon Dioxide 24 mEq/L (19-29); Chloride 108 mEq/L (98-109); Globulin 2.9 g/dL (2.4-3.5); Glucose 119 mg/dL (70-99); Magnesium 1.5 mg/dL (1.6-2.6); Osmolality,Calculated 289 (280-300); Potassium 3.4 mEq/L (3.5-4.5); Sodium 139 mEq/L (136-145); Total Protein 5.8 g/dL (6.0-8.3); eGFR For African Americans > 60 (> 60); eGFR For Non-African Americans > 60 (> 60)
[2017-04-28 02:43] LABS: Phosphorous 2.6 mg/dL (2.3-4.7)
[2017-04-28] MEDS ORDERED: Acetaminophen IV 1,000 MG/100 ML INFUS..BTL IVPB ONE (04:47)
[2017-04-28] MEDS ORDERED: 0.9 % Sodium Chloride 1,000 ML IVC ONE (04:49)
[2017-04-28] MEDS: *HR* Enoxaparin 40 MG/0.4 ML SYRINGE SQ SCH (06:44)
[2017-04-28] MEDS ORDERED: Magnesium Sulfate 1 GM in D5% in Water 100 ML IVPB ONE (09:07)
[2017-04-28 09:46] LABS: Bilirubin,Indirect 0.2 mg/dL (0.0-1.2); Bilirubin,Total 0.5 mg/dL (0.2-1.2)
--- NOTE | 2017-04-28 12:00 | Internal Med Progress Note ---
Date of Encounter: 04/28/17 Time of Encounter: 11:57 - Assessment and plan (1) Sepsis secondary to UTI Current Visit: Yes Status: Acute Assessment and plan: Clinically improving continue IV ceftriaxone 1gm qdaily f/u urine and blood cultures mental status back to baseline Tylenol prn fever continue IV fluids started regular diet noted to have one time reading of elevated BG, HbA1C: 5.2 (2) Electrolyte abnormality Current Visit: Yes Status: Acute Assessment and plan: Hypokalemia and hypomagnesemia K and Mg supplemented continue to monitor electrolytes and replace as needed (3) Headache Current Visit: Yes Status: Chronic Assessment and plan: Will start Fioricet prn headache CT head reported no acute intracranial abnormality Qualifiers: Headache type: unspecified Headache chronicity pattern: unspecified pattern Intractability: not intractable Qualified Code(s): R51 - Headache (4) DVT prophylaxis Current Visit: Yes Status: Acute Assessment and plan: Lovenox SQ (5) Obesity (BMI 30-39.9) Current Visit: Yes Status: Chronic (6) Tobacco abuse Current Visit: Yes Status: Acute Assessment and plan: smoking cessation counseling provided not ready to quit at this time refused nicotine supplementation - Subjective Interval history: Pt seen and examined at bedside. Pt reports of feeling better since her arrival to the hospital. States she had increased urinary frequency associated with fevers and chills prior to her hospitalization. Denies any fever or chills at this time. Denies any increased urinary frequency, dysuria at this time. States she feels weak but significantly better. Reports of having chronic history of headaches which are improved with excedrin. Denies any other discomfort at this time. Smokes 1/2pack a day - Constitutional Vitals: Temp Pulse Resp BP Pulse Ox 98.3 F 74 16 97/67 96 04/28/17 10:32 04/28/17 10:32 04/28/17 10:32 04/28/17 10:32 04/28/17 10:32 General appearance: Present: cooperative, A&O X 3, morbidly obese, pleasant, answers questions appropriately - Head Head exam: Present: atraumatic, normocephalic - Eye Eye exam: Present: conjuntiva pink, sclera anicteric - Respiratory Respiratory exam: Present: CTAB. Absent: accessory muscle use, rales, rhonchi, wheezes - Cardiovascular Cardiovascular exam: Present: RRR, +S1, +S2. Absent: diastolic murmur, gallop, rubs, systolic murmur - GI/Abdominal GI/Abdominal exam: Present: distended (obese), normal bowel sounds, soft, no peritoneal signs. Absent: tenderness - Extremities Exam Extremities exam: Present: warm, radial pulses palpable and symmetrical. Absent : calf tenderness, cyanotic, pedal edema - Neurological Exam Neurological exam: Present: alert, oriented X3 - Psychiatric Psychiatric exam: Present: normal affect, normal mood Internal Medicine: Result - Labs CBC & Chem 7: 04/28/17 02:09 04/28/17 02:09 Labs: Short CBC 04/28/17 Range/Units 02:09 WBC 4.4 (4.3-11.1) K/mcL Hgb 13.4 (11.5-15.4) g/dL Hct 41.2 (35.3-44.9) % Plt Count 108 L (140-400) K/mcL Neutrophils # 3.1 (1.6-8.9) K/mcL BMP 04/28/17 02:09 Sodium 139 Potassium 3.4 L Chloride 108 Carbon Dioxide 24 BUN 12 Creatinine 0.72 Glucose 119 H Calcium 9.1 Liver Function 04/28/17 04/28/17 Range/Units 02:09 02:09 Total Bilirubin 0.3 0.3 (0.2-1.2) mg/dL Direct Bilirubin 0.2 (0.0-0.5) mg/dL AST 13 13 (5-34) Units/L ALT 12 12 (0-55) Units/L Alkaline Phosphatase 60 57 (38-126) Units/L Albumin 2.9 L 2.9 L D (3.5-5.0) g/dL Consult Discharge Plan - Plan Referrals: Mukesh Lambert MD [Non-Partnered Physician] - 05/07/17 9:30 am
[2017-04-28 12:48] LABS: Hemoglobin A1C 5.2 %
[2017-04-28] MEDS: Acetaminophen/Butalbital/CaffeineTABLET PO PRN (13:13)
[2017-04-28] MEDS ORDERED: Acetaminophen 325 MG TABLET PO PRN (13:14)
[2017-04-28] MEDS ORDERED: *HR* HYDROcodone/Acet 5/325 mg TABLET PO PRN (13:16)
[2017-04-28] MEDS ORDERED: Dextrose Gel 15 GM PO PRN ×2 (13:18)
[2017-04-28] MEDS ORDERED: *HR* Dextrose 50 % in Water (Syg) 50 ML SYRINGE IVP PRN (13:18)
[2017-04-28] MEDS ORDERED: D5% in Water 1,000 ML IVC PRN (13:18)
[2017-04-28] MEDS ORDERED: Insulin LISPRO 300 UNITS/3 ML VIAL SQ SCH ×2 (16:30→21:00)
[2017-04-29] MEDS: Acetaminophen/Butalbital/CaffeineTABLET PO PRN (00:43)
[2017-04-29] MEDS: *HR* Enoxaparin 40 MG/0.4 ML SYRINGE SQ SCH (05:23)
[2017-04-29 05:24] LABS: Basophils % 0.5 %; Eosinophils # 0.1 K/mcL (0.0-0.6); Eosinophils % 1.6 %; Immature Granulocytes % 0.3 % (0-4); Lymphocytes # 0.9 K/mcL (0.6-4.6); Lymphocytes % 24.4 %; Mean Corpuscular HGB Conc 32.3 g/dL (31.6-35.5); Mean Corpuscular Hemoglobin 28.3 pg (28.0-33.3); Mean Corpuscular Volume 87.7 fL (83.0-100.0); Mean Platelet Volume 11.2 fL (9.4-12.4); Monocytes # 0.3 K/mcL (0.0-1.3); Neutrophils # 2.4 K/mcL (1.6-8.9); Platelet Count 109 K/mcL (140-400); Red Blood Count 3.99 M/mcL (3.82-4.97); Red Cell Distribution Width 14.3 % (11.5-14.5); Segmented Neutrophils % 65.2 %
[2017-04-29 05:30] LABS: Hemoglobin 11.3 g/dL (11.5-15.4)
[2017-04-29 05:38] LABS: BUN/Creatinine Ratio 13 (6-26); Blood Urea Nitrogen 7 mg/dL (7-20); Calcium 8.8 mg/dL (8.6-10.8); Carbon Dioxide 25 mEq/L (19-29); Chloride 112 mEq/L (98-109); Glucose 103 mg/dL (70-99); Magnesium 1.6 mg/dL (1.6-2.6); Osmolality,Calculated 290 (280-300); Phosphorous 2.5 mg/dL (2.3-4.7); Potassium 3.8 mEq/L (3.5-4.5); Sodium 141 mEq/L (136-145); eGFR For African Americans > 60 (> 60); eGFR For Non-African Americans > 60 (> 60)
--- NOTE | 2017-04-29 07:02 | Electrocardiograph Report ---
[place] [id number] Test Date: 2017-04-27 Pat Name: Cyndi Yang Department: 105 Room: 3A44 Gender: F Reimbursement Specialist: : [id number] Requested By: Indra Palacios Order Number: [id number] Reading MD: Raghav Owens MD Measurements Intervals [place] Rate: 96 P: 61 UT: 142 QRS: 53 QRSD: 84 T: 50 QT: 336 QTc: 389 Interpretive Statements SINUS RHYTHM Poor R wave progression Electronically Signed On 04-29-2017 6:59:57 EDT by Raghav Owens MD
[2017-04-29] MEDS ORDERED: 0.9 % Sodium Chloride 1,000 ML IVC SCH (07:51)
[2017-04-29 10:15] VITALS: BP 108/70
--- NOTE | 2017-04-29 11:33 | Discharge Summary ---
Date of Encounter: 04/29/17 Time of Encounter: 11:32 - Discharge Diagnosis (1) Sepsis secondary to UTI Priority: Primary Status: Resolved (2) Electrolyte abnormality Priority: Secondary Status: Resolved (3) Headache Priority: Secondary Status: Chronic Qualifiers: Headache type: unspecified Headache chronicity pattern: unspecified pattern Intractability: not intractable Qualified Code(s): R51 - Headache (4) DVT prophylaxis Priority: Secondary Status: Acute (5) Obesity (BMI 30-39.9) Priority: Secondary Status: Chronic (6) Tobacco abuse Priority: Secondary Status: Chronic - Discharge Medications Prescriptions: Acetaminophen/Butalbital/Caffe [Fioricet] 1 each PO Q6HR PRN #10 tablet PRN Reason: Headache Levofloxacin [Levaquin] 750 mg PO DAILY #7 tablet Home Medications: Acetaminophen/Butalbital/Caffe [Fioricet] 1 each PO Q6HR PRN #10 tablet [Rx] Levofloxacin [Levaquin] 750 mg PO DAILY #7 tablet 04/29/17 [Rx] Allergies/Adverse Reactions: Allergies No Known Allergies Allergy (Verified 07/25/15 19:27) Date of admission: 04/27/17 23:24 Primary care physician: Keaton Gonzalez MD Discharging clinician: Luana Thompson date of discharge: 04/29/17 - Patient Status Disposition: Home, Self-Care Condition: Good Functional capacity at discharge: independent ambulation Overall status at discharge: patient is back to baseline - Discharge Instructions Follow Up With: Mukesh Lambert MD [Non-Partnered Physician] - 05/07/17 9:30 am Additional Instructions: Please follow up with your primary care physician within one week after your discharge from the hospital. Please continue to take oral antibiotics as prescribed. - Diet and Activity Activity: resume usual activities as tolerated Diet: low salt diet Hospital course: Ms. Yang is a 51 year old female with history headache admitted for sepsis secondary to UTI. Upon arrival to the ER, she was found to have fever, headache , chills. She had a LP done in the ER which was negative for any infectious etiology. Her presenting symptoms improved with empiric abx used to treat the UTI. At this time she back to baseline. States she has chronic headaches but states her pain is resolved at this time. States she had appropriate pain relief with Fioricet and requests a prescription upon discharge. Denies any fever, chills, or any discomfort at this time. She is hemodynamically stable and will be discharged to home with PO abx and follow up with PCP. Pt demonstrates understanding of his diagnosis and agrees with the discharge care and plan. - Time Spent with Patient Total time spent providing and/or coordinating discharge services: Less than 30 minutes - Constitutional Vitals: Temp Pulse Resp BP Pulse Ox 98.1 F 71 16 108/70 94 04/29/17 10:10 04/29/17 10:10 04/29/17 10:10 04/29/17 10:10 04/29/17 10:10 General appearance: Present: cooperative, A&O X 3, morbidly obese, pleasant, answers questions appropriately - Head Head exam: Present: atraumatic, normocephalic - Eye Eye exam: Present: conjuntiva pink, sclera anicteric - Respiratory Respiratory exam: Present: CTAB. Absent: accessory muscle use, rales, rhonchi, wheezes - Cardiovascular Cardiovascular exam: Present: RRR, +S1, +S2. Absent: diastolic murmur, gallop, rubs, systolic murmur - GI/Abdominal GI/Abdominal exam: Present: distended (obese), normal bowel sounds, soft, no peritoneal signs. Absent: tenderness - Extremities Exam Extremities exam: Present: warm, radial pulses palpable and symmetrical. Absent : calf tenderness, cyanotic, pedal edema - Neurological Exam Neurological exam: Present: alert, oriented X3 - Psychiatric Psychiatric exam: Present: normal affect, normal mood
== END 2017-04-29 13:30 | disposition home or self-care (01) | DRG 872 ==
LOC: 3ANU 14:59 → EMEROO 14:59 → 3ANU 21:44 → SUATTDRO 23:24
PROVIDERS: ADMIT Internal Medicine; ATTEND Internal Medicine